=== PATIENT | female | born 1965 | race Caucasian/White ===

== ENCOUNTER 2018-04-12 12:33 | Emergency (ER) | payer SELFPAY, OTHER | END 2018-04-12 19:55 | disposition left against medical advice (07) | LOC: E/R 12:33 | DX: Z53.21 Procedure and treatment not carried out due to patient leaving prior to being seen by health care provider (principal) ==

== ENCOUNTER 2018-09-12 06:50 | Day surgery (SDC) | payer OTHER ==
[2018-09-12] MEDS ORDERED: MIDAZOLAM 1 MG/ML 2 ML INJ ×3 (09:50→09:51)
[2018-09-12] MEDS ORDERED: FENTAnyl 50 MCG/ML VIAL (09:51)
== END 2018-09-12 15:35 | disposition home or self-care (01) ==
LOC: GIL 06:50
DX: Z12.11 Encounter for screening for malignant neoplasm of colon (principal); K64.8 Other hemorrhoids; K57.30 Diverticulosis of large intestine without perforation or abscess without bleeding
CPT/HCPCS: 45378